=== PATIENT | female | born 1990 | race Two or more races ===

== ENCOUNTER 2025-05-27 17:46 | Emergency (ER) | payer OTHER ==
[~2025-05-27] VITALS: Ht 167.6 cm; Wt 124.7 kg
[2025-05-27] MEDS ORDERED: CHLORTHALIDONE25 MG PO (17:55)
[2025-05-27] MEDS ORDERED: TRAZODONE HCL50 MG PO (17:56)
[2025-05-27] MEDS ORDERED: WELLBUTRIN SR150 MG PO (17:57)
[2025-05-27] MEDS ORDERED: HYDROXYZIN10 MG/5 ML (17:57)
[2025-05-27] MEDS ORDERED: ONDANSETRON HCL 2 MG/ML VIAL IV ONE (18:15)
[2025-05-27] MEDS ORDERED: KETOROLAC TROMETHAMINE 30 MG VIAL IV ONE (18:15)
[2025-05-27] MEDS ORDERED: 0.9 % SODIUM CHLORIDE 1,000 ML IV ONE (18:15)
[2025-05-27] MEDS ORDERED: FAMOtidine 10 MG/ML (4ML VIAL) IV ONE (18:15)
[2025-05-27 19:40] LABS: BASO % 0.1 % (0.1-1.2); EOS # 0.02 (0.04-0.54); EOS % 0.2 % (0.7-7.0); LYMPH # 0.52 (1.18-3.74); LYMPH % 5.1 % (19.3-53.1); MEAN PLATELET VOLUME 9.90 fl (9.4-12.4); MONO # 0.30 (0.24-0.82); MONO % 2.9 % (4.7-12.5); NEUT # 9.38 (1.56-6.13); NEUT % 91.4 % (34.0-71.1); RED CELL DISTRIBUTION WIDTH 16.5 % (11.6-14.4)
[2025-05-27 20:09] LABS: ALT/SGPT 48 U/L (12-78); AST/SGOT 56 U/L (15-37); BILIRUBIN TOTAL 1.11 mg/dL (0.3-1.2); BUN CREA RATIO 14 (7.0-25.0); CREATININE SERUM 0.73 mg/dL (0.55-1.02); GFR 90.21; GLOBULINA 4.5 G/DL (2.4-3.5); GLUCOSE FASTING 146 mg/dL (65-100); OSMOLALITY SERUM 277 MOSM/KG (275-295)
[2025-05-27 20:15] LABS: BILIRUBIN,CONJUGATED 0.17 mg/dL (0.0-0.2); HCG QUANTITATIVE < 1 mUI/mL (1-3)
[2025-05-27 20:20] LABS: URINE APPEARANCE Clear; URINE BILIRRUBIN Negative (NEGATIVE); URINE BLOOD Negative; URINE COLOR Yellow; URINE GLUCOSE Negative (NEGATIVE); URINE KETONE 15 (NEGATIVE); URINE LEUKOCYTE Negative; URINE NITRATE Negative; URINE PROTEIN Trace (NEGATIVE); URINE UROBILINOGEN 1.0 E.U./dl
[2025-05-27 20:27] LABS: URINE BACTERIA 169.1 uL (0.0-1933); URINE EPITHELIAL CELLS 6.4 uL (0.0-38.8); URINE RBC 5.5 uL (0.0-20.8); URINE WBC 8.2 uL (0.0-23.2)
[2025-05-27 20:56] LABS: URINE CAST 0.14 uL (0.0-1.40)
[2025-05-27] MEDS ORDERED: ZOFRAN8 MG PO (23:15)
[2025-05-27] MEDS ORDERED: PEPCID AC20 MG PO (23:15)
== END 2025-05-28 00:38 | disposition home or self-care (01) ==
LOC: ER 17:47
PROVIDERS: General Practice
DX: K52.89 Other specified noninfective gastroenteritis and colitis (principal); R10.A1 Flank pain, right side; I10 Essential (primary) hypertension